=== PATIENT | male | born 1960 | race Two or more races ===

== ENCOUNTER → 2023-03-24 | Emergency (ER) | payer OTHER ==
[~2023-03-24] VITALS: Ht 177.8 cm; Wt 104.3 kg
[~2023-03-24] MED LIST: ATACAND4 MG PO; DICLOFENAC SODI75 MG PO; LABETALOL HCL100 MG PO; NIFEDIPINE20 MG; NORFLEX100MG PO
== END | disposition home or self-care (01) ==
LOC: ER 08:49
DX: M54.89 Other dorsalgia (principal); I10 Essential (primary) hypertension